=== PATIENT | male | born 1940 | race Caucasian/White ===

== ENCOUNTER 2022-05-02 08:01 | Emergency (ER) | payer MEDICARE ==
[~2022-05-02] VITALS: Ht 175.3 cm; Wt 72.0 kg
[~2022-05-02 08:01] MED LIST: LOSA25TA96 PO
--- NOTE | 2022-05-02 08:27 | NUR ---
Pt placed on engine monitor for further observation.
--- NOTE | 2022-05-02 08:40 | NUR ---
pt back in [place] from [place].Dr Swartz aware about patient.
[2022-05-02 08:46] LABS: BASOPHILS % (AUTO) 0.8 % (0-1); EOSINOPHILS # (AUTO) 0.1 X10'3 (0-0.9); EOSINOPHILS % (AUTO) 2.4 % (0-6); HEMATOCRIT 43.6 % (42.0-52.0); HEMOGLOBIN 15.3 g/dl (14.0-17.9); LYMPHOCYTES # (AUTO) 1.3 X10'3 (1.1-4.8); LYMPHOCYTES % (AUTO) 21.7 % (21-51); MEAN CORPUSCULAR HEMOGLOBIN 34.1 PG (27.0-31.0); MEAN CORPUSCULAR HGB CONC 35.2 g/dL (33.0-36.5); MEAN CORPUSCULAR VOLUME 97.1 FL (78-98); MEAN PLATELET VOLUME 8.4 FL (7.4-10.4); MONOCYTES # (AUTO) 0.6 X10'3 (0-0.9); MONOCYTES % (AUTO) 9.2 % (2-12); NEUTROPHILS % (AUTO) 65.9 % (42-75); PLATELET COUNT 161 X10'3 (140-440); RED BLOOD COUNT 4.49 X10'6 (4.70-6.10); RED CELL DISTRIBUTION WIDTH 12.8 % (11.5-14.5)
[2022-05-02 09:03] LABS: APTT 31 SECONDS (22-32)
[2022-05-02 09:24] LABS: ANION GAP 11 (8-16); CHLORIDE 105 MMOL/L (99-107); GLUCOSE 95 MG/DL (70-104); POTASSIUM 4.2 MMOL/L (3.5-5.1); SODIUM 140 MMOL/L (135-145); TOTAL CARBON DIOXIDE 23.8 MMOL/L (24-32)
[2022-05-02 09:25] LABS: ALANINE AMINOTRANSFERASE 29 U/L (12-78); ALBUMIN 3.6 G/DL (3.4-5.0); ALKALINE PHOSPHATASE 23 IU/L (46-116); ASPARTATE AMINO TRANSFERASE 22 U/L (10-37); BILIRUBIN,TOTAL 1.1 MG/DL (0.1-1.0); BLOOD UREA NITROGEN 16 MG/DL (7-18); BUN/CREATININE RATIO 11.5 (5.4-32.0); CALCIUM 8.8 MG/DL (8.5-10.1); CREATININE 1.39 MG/DL (0.60-1.10); TOTAL PROTEIN 7.3 G/DL (6.4-8.2); eGFR 49 ML/MIN
--- NOTE | 2022-05-02 10:09 | NUR ---
pt signed mri form, spouse went home to get the info card for pt's head shunt.
--- NOTE | 2022-05-02 13:00 | NUR ---
mri form and shunt infiormation faxed to MRI.
--- NOTE | 2022-05-02 13:10 | NUR ---
awaiting tele neuro.
--- NOTE | 2022-05-02 14:49 | NUR ---
Pt denies sx at this time, awaiting tele-neuro, will continue to monitor for changes.
[2022-05-02 15:23] VITALS: BP 118/65
--- NOTE | 2022-05-02 15:42 | NUR ---
Pt and given and understands d/c instructions. IV d/c'd, catheter was intact. Ambulatory with a steady gait.
== END 2022-05-02 15:42 | disposition home or self-care (01) ==
LOC: ER 08:02
DX: R25.9 Unspecified abnormal involuntary movements (principal); G91.2 (Idiopathic) normal pressure hydrocephalus; Z98.2 Presence of cerebrospinal fluid drainage device; R56.9 Unspecified convulsions
CPT/HCPCS: 36415; 70450; 71045; 80053; 82948; 85025; 85610; 85730; 93005; 99285